=== PATIENT | male | born 1995 | race African-American/Black ===

== ENCOUNTER 2022-01-10 12:04 | Inpatient (IN) | payer OTHER ==
[~2022-01-10] VITALS: Ht 188 cm; Wt 85.3 kg
[2022-01-10 16:30] VITALS: BP 126/67
[2022-01-10 18:20] VITALS: BP 126/62
[2022-01-10] MEDS ORDERED: ACETAMINOPHEN 325 MG TABLET PO PRN (18:45)
[2022-01-10] MEDS ORDERED: ONDANSETRON HCL 4 MG TABLET PO PRN (19:00)
[2022-01-10] MEDS: ACETAMINOPHEN 325 MG TABLET PO SCH ×2 (19:53→23:30)
[2022-01-10] MEDS: CELECOXIB 100 MG CAPSULE PO SCH (20:02)
[2022-01-10] MEDS: PREGABALIN 50 MG CAPSULE PO SCH (20:03)
[2022-01-10] MEDS: METHOCARBAMOL 500 MG TABLET PO SCH (20:04)
[2022-01-10] MEDS: POLYETHYLENE GLYCOL 3350 17 GM PACKET PO SCH (20:05)
[2022-01-10] MEDS: SENNA 187 MG TABLET PO SCH (20:05)
[2022-01-10] MEDS: DOCUSATE SODIUM 100 MG CAPSULE PO SCH (20:05)
[2022-01-10] MEDS ORDERED: DULoxetine HCL 30 MG CAPSULE PO SCH (21:00)
[2022-01-10 21:01] LABS: BASOPHILS % (AUTO) 0.8 % (0.0-2.0); EOSINOPHILS % (AUTO) 3.4 % (1.0-6.0); HEMATOCRIT 34.1 % (41-53); HEMOGLOBIN 11.2 g/dL (13.5-17.5); LYMPHOCYTES # (AUTO) 1.5 K/uL (1.0-4.8); LYMPHOCYTES % (AUTO) 34.2 % (22.0-44.0); MEAN CORPUSCULAR HEMOGLOBIN 29.4 pg (26.0-34.0); MEAN CORPUSCULAR HGB CONC 32.8 G/dL (31.0-37.0); MEAN CORPUSCULAR VOLUME 90 fL (80-100); MONOCYTES # (AUTO) 0.5 K/uL (0.1-1.0); MONOCYTES % (AUTO) 10.5 % (2.0-9.0); NEUTROPHILS # (AUTO) 2.3 K/uL (1.8-7.7); NEUTROPHILS % (AUTO) 51.1 % (40.0-70.0); PLATELET COUNT (AUTO) 408 K/uL (150-450); RED BLOOD CELL COUNT(AUTO) 3.81 MIL/uL (4.50-5.90); RED CELL DISTRIBUTION WIDTH 14.4 % (11.5-14.5)
[2022-01-10 21:17] LABS: ALANINE AMINOTRANSFERASE 56 U/L (12-78); ALBUMIN 2.9 g/dL (3.4-5.0); ALKALINE PHOSPHATASE 157 U/L (46-116); ANION GAP 9 mmol/L (8-16); ASPARTATE AMINOTRANSFERASE 19 U/L (15-37); BILIRUBIN,TOTAL 0.4 mg/dL (0.1-1.0); CALCIUM, TOTAL 9.1 mg/dL (8.8-10.5); CARBON DIOXIDE 28 mmol/L (22-29); CHLORIDE 102 mmol/L (98-107); CREATININE 0.74 mg/dL (0.60-1.30); GLOMERULAR FILTR. RATE CALC > 60 mL/min (>60); GLUCOSE,RANDOM 136 mg/dL (70-110); POTASSIUM 4.2 mmol/L (3.5-5.1); SODIUM SERUM 139 mmol/L (136-145); TOTAL PROTEIN, SERUM 7.1 g/dL (6.4-8.2); UREA NITROGEN, BLOOD 14 mg/dL (7-18)
[2022-01-10] MEDS: OxyCODONE HCL 5 MG IR TABLET PO PRN (21:17)
[2022-01-10] MEDS: MELATONIN 3 MG TABLET PO SCH (23:30)
[2022-01-11 00:12] VITALS: BP 161/83
[2022-01-11 01:07] VITALS: BP 161/83
[2022-01-11] MEDS: OxyCODONE HCL 5 MG IR TABLET PO PRN ×4 (01:45→18:20)
[2022-01-11] MEDS: ACETAMINOPHEN 325 MG TABLET PO SCH ×5 (03:40→19:53)
[2022-01-11 04:50] VITALS: BP 175/93
[2022-01-11] MEDS: PREGABALIN 50 MG CAPSULE PO SCH ×3 (08:29→20:12)
[2022-01-11] MEDS: ENOXAPARIN SODIUM 40 MG/0.4 ML PF SYRINGE SQ SCH (08:29)
[2022-01-11] MEDS: METHOCARBAMOL 500 MG TABLET PO SCH ×3 (08:29→20:12)
[2022-01-11] MEDS: AmLODIPine BESYLATE 10 MG TABLET PO SCH (08:29)
[2022-01-11] MEDS: CELECOXIB 100 MG CAPSULE PO SCH ×2 (08:30→20:12)
[2022-01-11] MEDS: POLYETHYLENE GLYCOL 3350 17 GM PACKET PO SCH ×2 (08:30→20:13)
[2022-01-11] MEDS: DOCUSATE SODIUM 100 MG CAPSULE PO SCH ×2 (08:30→20:13)
[2022-01-11 09:01] VITALS: BP 151/94
[2022-01-11 16:05] VITALS: BP 158/85
[2022-01-11] MEDS: SENNA 187 MG TABLET PO SCH (20:13)
[2022-01-11] MEDS: DULoxetine HCL 60 MG CAPSULE PO SCH (20:28)
[2022-01-11] MEDS: MELATONIN 3 MG TABLET PO SCH (21:37)
[2022-01-12] VITALS: BP 145/83
[2022-01-12] MEDS: ACETAMINOPHEN 325 MG TABLET PO SCH ×7 (00:04→19:55)
[2022-01-12] MEDS: OxyCODONE HCL 5 MG IR TABLET PO PRN ×7 (00:51→21:45)
[2022-01-12] MEDS: PREGABALIN 50 MG CAPSULE PO SCH ×3 (07:59→21:22)
[2022-01-12] MEDS: ENOXAPARIN SODIUM 40 MG/0.4 ML PF SYRINGE SQ SCH (07:59)
[2022-01-12] MEDS: METHOCARBAMOL 500 MG TABLET PO SCH ×3 (07:59→20:25)
[2022-01-12] MEDS: CELECOXIB 100 MG CAPSULE PO SCH ×2 (08:00→20:24)
[2022-01-12] MEDS: AmLODIPine BESYLATE 10 MG TABLET PO SCH (08:00)
[2022-01-12] MEDS: POLYETHYLENE GLYCOL 3350 17 GM PACKET PO SCH ×2 (08:00→20:25)
[2022-01-12] MEDS: DOCUSATE SODIUM 100 MG CAPSULE PO SCH ×2 (08:00→20:24)
[2022-01-12 08:10] VITALS: BP 135/82
[2022-01-12 15:35] VITALS: BP 128/85
[2022-01-12] MEDS: SENNA 187 MG TABLET PO SCH (20:25)
[2022-01-12] MEDS: DULoxetine HCL 60 MG CAPSULE PO SCH (20:25)
[2022-01-12] MEDS ORDERED: AMITRIPTYLINE HCL 25 MG TABLET PO SCH (21:00)
[2022-01-12] MEDS: MELATONIN 3 MG TABLET PO SCH (21:22)
[2022-01-13] MEDS: ACETAMINOPHEN 325 MG TABLET PO SCH ×7 (03:45→23:54)
[2022-01-13] MEDS: OxyCODONE HCL 5 MG IR TABLET PO PRN ×7 (03:45→23:54)
[2022-01-13 06:15] VITALS: BP 143/90
[2022-01-13 06:57] VITALS: BP 156/102
[2022-01-13] MEDS: METHOCARBAMOL 500 MG TABLET PO SCH ×3 (08:46→21:54)
[2022-01-13] MEDS: POLYETHYLENE GLYCOL 3350 17 GM PACKET PO SCH ×2 (08:47→21:55)
[2022-01-13] MEDS: CELECOXIB 100 MG CAPSULE PO SCH ×2 (08:47→21:53)
[2022-01-13] MEDS: DOCUSATE SODIUM 100 MG CAPSULE PO SCH ×2 (08:47→21:52)
[2022-01-13] MEDS: PREGABALIN 50 MG CAPSULE PO SCH ×3 (08:47→21:52)
[2022-01-13] MEDS: AmLODIPine BESYLATE 10 MG TABLET PO SCH (08:48)
[2022-01-13] MEDS: ENOXAPARIN SODIUM 40 MG/0.4 ML PF SYRINGE SQ SCH (08:48)
[2022-01-13] MEDS ORDERED: NALOXONE HCL 0.4 MG/ML VIAL IM PRN (10:00)
[2022-01-13 10:22] VITALS: BP 157/94
[2022-01-13] MEDS: ETHYL ALCOHOL 62% ANTISEPTIC NASAL SANITIZER 0.6 ML AMPUL NASAL SCH ×2 (10:22→21:49)
[2022-01-13 16:42] VITALS: BP 140/86
[2022-01-13] MEDS: SENNA 187 MG TABLET PO SCH (21:00)
[2022-01-13] MEDS: OxyCODONE HCL 20 MG ER TABLET PO SCH (21:50)
[2022-01-13] MEDS: MELATONIN 3 MG TABLET PO SCH (21:52)
[2022-01-13] MEDS: DULoxetine HCL 60 MG CAPSULE PO SCH (21:52)
[2022-01-13] MEDS: AMITRIPTYLINE HCL 25 MG TABLET PO SCH (21:56)
[2022-01-13 23:54] VITALS: BP 145/90
[2022-01-14] MEDS: ACETAMINOPHEN 325 MG TABLET PO SCH ×5 (04:00→21:13)
[2022-01-14 07:15] VITALS: BP 156/100
[2022-01-14] MEDS: OxyCODONE HCL 5 MG IR TABLET PO PRN ×4 (07:15→19:07)
[2022-01-14] MEDS: ETHYL ALCOHOL 62% ANTISEPTIC NASAL SANITIZER 0.6 ML AMPUL NASAL SCH ×2 (08:14→21:07)
[2022-01-14] MEDS: DOCUSATE SODIUM 100 MG CAPSULE PO SCH ×2 (08:15→21:08)
[2022-01-14] MEDS: OxyCODONE HCL 20 MG ER TABLET PO SCH ×2 (08:15→21:09)
[2022-01-14] MEDS: CELECOXIB 100 MG CAPSULE PO SCH ×2 (08:15→21:10)
[2022-01-14] MEDS: AmLODIPine BESYLATE 10 MG TABLET PO SCH (08:15)
[2022-01-14] MEDS: PREGABALIN 50 MG CAPSULE PO SCH ×3 (08:15→21:07)
[2022-01-14] MEDS: METHOCARBAMOL 500 MG TABLET PO SCH ×3 (08:16→21:08)
[2022-01-14] MEDS: ENOXAPARIN SODIUM 40 MG/0.4 ML PF SYRINGE SQ SCH (08:16)
[2022-01-14] MEDS: POLYETHYLENE GLYCOL 3350 17 GM PACKET PO SCH ×2 (08:17→21:10)
[2022-01-14 16:03] VITALS: BP 136/90
[2022-01-14] MEDS: SENNA 187 MG TABLET PO SCH (21:00)
[2022-01-14] MEDS: AMITRIPTYLINE HCL 25 MG TABLET PO SCH (21:09)
[2022-01-14] MEDS: DULoxetine HCL 60 MG CAPSULE PO SCH (21:09)
[2022-01-14] MEDS: MELATONIN 3 MG TABLET PO SCH (21:09)
[2022-01-14 23:00] VITALS: BP 149/91
[2022-01-15] MEDS: ACETAMINOPHEN 325 MG TABLET PO SCH ×6 (04:00→19:57)
[2022-01-15] MEDS: OxyCODONE HCL 5 MG IR TABLET PO PRN ×3 (07:41→16:13)
[2022-01-15 07:42] VITALS: BP 153/93
[2022-01-15 07:55] LABS: BASOPHILS % (AUTO) 0.6 % (0.0-2.0); EOSINOPHILS % (AUTO) 5.2 % (1.0-6.0); HEMATOCRIT 37.4 % (41-53); HEMOGLOBIN 12.1 g/dL (13.5-17.5); LYMPHOCYTES # (AUTO) 1.9 K/uL (1.0-4.8); LYMPHOCYTES % (AUTO) 46.1 % (22.0-44.0); MEAN CORPUSCULAR HEMOGLOBIN 29.3 pg (26.0-34.0); MEAN CORPUSCULAR HGB CONC 32.2 G/dL (31.0-37.0); MEAN CORPUSCULAR VOLUME 91 fL (80-100); MONOCYTES # (AUTO) 0.4 K/uL (0.1-1.0); MONOCYTES % (AUTO) 8.4 % (2.0-9.0); NEUTROPHILS # (AUTO) 1.7 K/uL (1.8-7.7); NEUTROPHILS % (AUTO) 39.7 % (40.0-70.0); PLATELET COUNT (AUTO) 329 K/uL (150-450); RED BLOOD CELL COUNT(AUTO) 4.11 MIL/uL (4.50-5.90); RED CELL DISTRIBUTION WIDTH 14.9 % (11.5-14.5)
[2022-01-15] MEDS: OxyCODONE HCL 20 MG ER TABLET PO SCH ×2 (08:37→21:23)
[2022-01-15] MEDS: POLYETHYLENE GLYCOL 3350 17 GM PACKET PO SCH ×2 (08:37→21:23)
[2022-01-15] MEDS: ETHYL ALCOHOL 62% ANTISEPTIC NASAL SANITIZER 0.6 ML AMPUL NASAL SCH ×2 (08:38→21:24)
[2022-01-15] MEDS: PREGABALIN 50 MG CAPSULE PO SCH ×3 (08:38→21:23)
[2022-01-15] MEDS: METHOCARBAMOL 500 MG TABLET PO SCH ×3 (08:38→21:22)
[2022-01-15] MEDS: ENOXAPARIN SODIUM 40 MG/0.4 ML PF SYRINGE SQ SCH (08:38)
[2022-01-15] MEDS: AmLODIPine BESYLATE 10 MG TABLET PO SCH (08:39)
[2022-01-15] MEDS: DOCUSATE SODIUM 100 MG CAPSULE PO SCH ×2 (08:39→21:24)
[2022-01-15] MEDS: CELECOXIB 100 MG CAPSULE PO SCH ×2 (08:39→21:23)
[2022-01-15 16:15] VITALS: BP 141/90
[2022-01-15] MEDS: SENNA 187 MG TABLET PO SCH (21:00)
[2022-01-15] MEDS: MELATONIN 3 MG TABLET PO SCH (21:23)
[2022-01-15] MEDS: DULoxetine HCL 60 MG CAPSULE PO SCH (21:24)
[2022-01-15] MEDS: AMITRIPTYLINE HCL 25 MG TABLET PO SCH (21:24)
[2022-01-16 03:00] VITALS: BP 142/93
[2022-01-16] MEDS: ACETAMINOPHEN 325 MG TABLET PO SCH ×6 (04:00→20:42)
[2022-01-16] MEDS: OxyCODONE HCL 5 MG IR TABLET PO PRN ×3 (06:54→18:07)
[2022-01-16] MEDS: ENOXAPARIN SODIUM 40 MG/0.4 ML PF SYRINGE SQ SCH (08:53)
[2022-01-16] MEDS: METHOCARBAMOL 500 MG TABLET PO SCH ×3 (08:54→20:42)
[2022-01-16] MEDS: PREGABALIN 50 MG CAPSULE PO SCH ×3 (08:54→20:41)
[2022-01-16] MEDS: DOCUSATE SODIUM 100 MG CAPSULE PO SCH ×2 (08:55→20:42)
[2022-01-16] MEDS: AmLODIPine BESYLATE 10 MG TABLET PO SCH (08:55)
[2022-01-16] MEDS: OxyCODONE HCL 20 MG ER TABLET PO SCH ×2 (08:55→20:42)
[2022-01-16] MEDS: CELECOXIB 100 MG CAPSULE PO SCH ×2 (08:56→20:42)
[2022-01-16] MEDS: POLYETHYLENE GLYCOL 3350 17 GM PACKET PO SCH ×3 (08:56→20:51)
[2022-01-16] MEDS: ETHYL ALCOHOL 62% ANTISEPTIC NASAL SANITIZER 0.6 ML AMPUL NASAL SCH ×2 (08:56→20:43)
[2022-01-16 10:43] VITALS: BP 154/85
[2022-01-16] MEDS ORDERED: PREGABALIN 50 MG CAPSULE PO SCH (16:00)
[2022-01-16 16:30] VITALS: BP 154/91
[2022-01-16] MEDS: SENNA 187 MG TABLET PO SCH (20:42)
[2022-01-16] MEDS: AMITRIPTYLINE HCL 25 MG TABLET PO SCH (20:43)
[2022-01-16] MEDS: MELATONIN 3 MG TABLET PO SCH (20:43)
[2022-01-16] MEDS: DULoxetine HCL 60 MG CAPSULE PO SCH (20:43)
[2022-01-17] MEDS: OxyCODONE HCL 5 MG IR TABLET PO PRN ×6 (00:12→23:15)
[2022-01-17 00:13] VITALS: BP 183/91
[2022-01-17] MEDS: ACETAMINOPHEN 325 MG TABLET PO SCH ×8 (04:00→23:25)
[2022-01-17] MEDS: POLYETHYLENE GLYCOL 3350 17 GM PACKET PO SCH ×2 (07:08→21:31)
[2022-01-17] MEDS: ETHYL ALCOHOL 62% ANTISEPTIC NASAL SANITIZER 0.6 ML AMPUL NASAL SCH ×2 (07:08→21:31)
[2022-01-17] MEDS: ENOXAPARIN SODIUM 40 MG/0.4 ML PF SYRINGE SQ SCH (07:08)
[2022-01-17] MEDS: AmLODIPine BESYLATE 10 MG TABLET PO SCH (07:10)
[2022-01-17] MEDS: METHOCARBAMOL 500 MG TABLET PO SCH ×3 (07:10→21:30)
[2022-01-17] MEDS: PREGABALIN 50 MG CAPSULE PO SCH ×3 (07:10→21:30)
[2022-01-17] MEDS: DOCUSATE SODIUM 100 MG CAPSULE PO SCH ×2 (07:11→21:31)
[2022-01-17] MEDS: CELECOXIB 100 MG CAPSULE PO SCH ×2 (07:11→21:30)
[2022-01-17 07:17] VITALS: BP 138/93
[2022-01-17] MEDS: OxyCODONE HCL 20 MG ER TABLET PO SCH ×2 (07:18→21:29)
[2022-01-17 16:30] VITALS: BP 136/90
[2022-01-17] MEDS: SENNA 187 MG TABLET PO SCH (21:29)
[2022-01-17] MEDS: AMITRIPTYLINE HCL 25 MG TABLET PO SCH (21:30)
[2022-01-17] MEDS: MELATONIN 3 MG TABLET PO SCH (21:30)
[2022-01-17] MEDS: DULoxetine HCL 60 MG CAPSULE PO SCH (21:31)
[2022-01-17 23:15] VITALS: BP 142/90
[2022-01-18] MEDS: ACETAMINOPHEN 325 MG TABLET PO SCH ×2 (04:00→08:00)
[2022-01-18] MEDS: OxyCODONE HCL 5 MG IR TABLET PO PRN ×5 (07:35→20:28)
[2022-01-18 08:00] VITALS: BP 156/93
[2022-01-18] MEDS: METHOCARBAMOL 500 MG TABLET PO SCH ×2 (09:00→10:27)
[2022-01-18] MEDS: OxyCODONE HCL 20 MG ER TABLET PO SCH ×2 (09:00→10:27)
[2022-01-18] MEDS: POLYETHYLENE GLYCOL 3350 17 GM PACKET PO SCH ×3 (09:00→20:41)
[2022-01-18] MEDS: PREGABALIN 50 MG CAPSULE PO SCH ×3 (09:28→20:30)
[2022-01-18] MEDS: ETHYL ALCOHOL 62% ANTISEPTIC NASAL SANITIZER 0.6 ML AMPUL NASAL SCH ×2 (09:28→20:30)
[2022-01-18] MEDS: DOCUSATE SODIUM 100 MG CAPSULE PO SCH ×2 (09:28→20:30)
[2022-01-18] MEDS: CELECOXIB 100 MG CAPSULE PO SCH ×2 (09:28→20:29)
[2022-01-18] MEDS: AmLODIPine BESYLATE 10 MG TABLET PO SCH (09:28)
[2022-01-18] MEDS: ENOXAPARIN SODIUM 40 MG/0.4 ML PF SYRINGE SQ SCH (09:29)
[2022-01-18] MEDS ORDERED: ACETAMINOPHEN 325 MG TABLET PO PRN (11:30)
[2022-01-18 16:44] VITALS: BP 156/86
[2022-01-18 20:28] VITALS: BP 153/93
[2022-01-18] MEDS: AMITRIPTYLINE HCL 75 MG TABLET PO SCH (20:29)
[2022-01-18] MEDS: DULoxetine HCL 60 MG CAPSULE PO SCH (20:29)
[2022-01-18] MEDS: CloNIDine HCL 0.1 MG TABLET PO SCH (20:29)
[2022-01-18] MEDS: SENNA 187 MG TABLET PO SCH (20:30)
[2022-01-18] MEDS: MELATONIN 3 MG TABLET PO SCH (20:30)
[2022-01-19 05:39] VITALS: BP 136/87
[2022-01-19] MEDS: OxyCODONE HCL 5 MG IR TABLET PO PRN ×7 (05:39→21:04)
[2022-01-19 08:47] VITALS: BP 154/103
[2022-01-19] MEDS: POLYETHYLENE GLYCOL 3350 17 GM PACKET PO SCH ×3 (09:00→20:35)
[2022-01-19] MEDS: CloNIDine HCL 0.1 MG TABLET PO SCH ×2 (10:29→20:34)
[2022-01-19] MEDS: PREGABALIN 50 MG CAPSULE PO SCH ×4 (10:29→20:50)
[2022-01-19] MEDS: CELECOXIB 100 MG CAPSULE PO SCH ×2 (10:29→20:34)
[2022-01-19] MEDS: ENOXAPARIN SODIUM 40 MG/0.4 ML PF SYRINGE SQ SCH (10:30)
[2022-01-19] MEDS: DOCUSATE SODIUM 100 MG CAPSULE PO SCH ×2 (10:30→20:33)
[2022-01-19] MEDS: ETHYL ALCOHOL 62% ANTISEPTIC NASAL SANITIZER 0.6 ML AMPUL NASAL SCH ×2 (10:30→20:30)
[2022-01-19 16:07] VITALS: BP 145/92
[2022-01-19 20:29] VITALS: BP 140/98
[2022-01-19] MEDS: AMITRIPTYLINE HCL 75 MG TABLET PO SCH (20:33)
[2022-01-19] MEDS: MELATONIN 3 MG TABLET PO SCH (20:34)
[2022-01-19] MEDS: DULoxetine HCL 60 MG CAPSULE PO SCH (20:35)
[2022-01-19] MEDS: SENNA 187 MG TABLET PO SCH (20:36)
[2022-01-20] MEDS: OxyCODONE HCL 5 MG IR TABLET PO PRN ×5 (04:47→18:52)
[2022-01-20 04:58] VITALS: BP 151/93
[2022-01-20] MEDS: ENOXAPARIN SODIUM 40 MG/0.4 ML PF SYRINGE SQ SCH (07:48)
[2022-01-20] MEDS: ETHYL ALCOHOL 62% ANTISEPTIC NASAL SANITIZER 0.6 ML AMPUL NASAL SCH ×2 (07:48→20:07)
[2022-01-20] MEDS: PREGABALIN 50 MG CAPSULE PO SCH ×3 (07:49→20:17)
[2022-01-20] MEDS: CloNIDine HCL 0.1 MG TABLET PO SCH ×2 (07:49→20:06)
[2022-01-20 07:50] VITALS: BP 148/84
[2022-01-20] MEDS: CELECOXIB 100 MG CAPSULE PO SCH ×2 (07:50→20:07)
[2022-01-20] MEDS: POLYETHYLENE GLYCOL 3350 17 GM PACKET PO SCH ×2 (07:50→20:17)
[2022-01-20] MEDS: DOCUSATE SODIUM 100 MG CAPSULE PO SCH ×2 (07:50→20:06)
[2022-01-20 15:32] VITALS: BP 155/82
[2022-01-20 19:52] VITALS: BP 143/89
[2022-01-20] MEDS: SENNA 187 MG TABLET PO SCH (20:06)
[2022-01-20] MEDS: AMITRIPTYLINE HCL 75 MG TABLET PO SCH (20:06)
[2022-01-20] MEDS: MELATONIN 3 MG TABLET PO SCH (20:06)
[2022-01-20] MEDS: DULoxetine HCL 60 MG CAPSULE PO SCH (20:07)
[2022-01-21] MEDS: ETHYL ALCOHOL 62% ANTISEPTIC NASAL SANITIZER 0.6 ML AMPUL NASAL SCH ×2 (07:59→20:27)
[2022-01-21] MEDS: ENOXAPARIN SODIUM 40 MG/0.4 ML PF SYRINGE SQ SCH (07:59)
[2022-01-21] MEDS: CloNIDine HCL 0.1 MG TABLET PO SCH ×2 (08:00→20:28)
[2022-01-21] MEDS: OxyCODONE HCL 5 MG IR TABLET PO PRN ×4 (08:00→20:26)
[2022-01-21] MEDS: PREGABALIN 50 MG CAPSULE PO SCH ×3 (08:00→20:27)
[2022-01-21] MEDS: CELECOXIB 100 MG CAPSULE PO SCH ×2 (08:01→20:28)
[2022-01-21] MEDS: DOCUSATE SODIUM 100 MG CAPSULE PO SCH ×2 (08:01→20:28)
[2022-01-21] MEDS: POLYETHYLENE GLYCOL 3350 17 GM PACKET PO SCH ×2 (08:01→20:28)
[2022-01-21 08:05] VITALS: BP 151/83
[2022-01-21] MEDS ORDERED: OxyCODONE HCL 5 MG IR TABLET PO ONE (10:15)
[2022-01-21 15:57] VITALS: BP 154/81
[2022-01-21] MEDS: AMITRIPTYLINE HCL 75 MG TABLET PO SCH (20:28)
[2022-01-21] MEDS: SENNA 187 MG TABLET PO SCH (20:28)
[2022-01-21] MEDS: DULoxetine HCL 60 MG CAPSULE PO SCH (20:28)
[2022-01-21] MEDS: MELATONIN 3 MG TABLET PO SCH (20:28)
[2022-01-22] MEDS: OxyCODONE HCL 5 MG IR TABLET PO PRN ×4 (06:22→20:46)
[2022-01-22 06:29] VITALS: BP 153/89
[2022-01-22 07:29] VITALS: BP 155/88
[2022-01-22] MEDS: ETHYL ALCOHOL 62% ANTISEPTIC NASAL SANITIZER 0.6 ML AMPUL NASAL SCH ×2 (08:33→20:36)
[2022-01-22] MEDS: PREGABALIN 50 MG CAPSULE PO SCH ×3 (08:33→20:37)
[2022-01-22] MEDS: ENOXAPARIN SODIUM 40 MG/0.4 ML PF SYRINGE SQ SCH (08:33)
[2022-01-22] MEDS: CloNIDine HCL 0.1 MG TABLET PO SCH ×2 (08:34→20:45)
[2022-01-22] MEDS: POLYETHYLENE GLYCOL 3350 17 GM PACKET PO SCH ×2 (08:34→20:48)
[2022-01-22] MEDS: CELECOXIB 100 MG CAPSULE PO SCH ×2 (08:34→20:38)
[2022-01-22] MEDS: DOCUSATE SODIUM 100 MG CAPSULE PO SCH ×2 (08:34→20:38)
[2022-01-22] MEDS ORDERED: AMIT75TA55 PO (10:44)
[2022-01-22] MEDS ORDERED: OXYC5 PO (10:44)
[2022-01-22] MEDS ORDERED: DOCU-385 PO (10:44)
[2022-01-22] MEDS ORDERED: DULO-113 PO (10:44)
[2022-01-22] MEDS ORDERED: CELE100 PO (10:44)
[2022-01-22] MEDS ORDERED: CLON0.1T2 PO (10:44)
[2022-01-22] MEDS ORDERED: PREG50 PO (10:44)
[2022-01-22] MEDS ORDERED: SENN-187 PO (10:44)
[2022-01-22] MEDS ORDERED: ACET325T51 PO (10:44)
[2022-01-22 15:20] VITALS: BP 142/81
[2022-01-22] MEDS: AMITRIPTYLINE HCL 75 MG TABLET PO SCH (20:37)
[2022-01-22] MEDS: MELATONIN 3 MG TABLET PO SCH (20:37)
[2022-01-22] MEDS: DULoxetine HCL 60 MG CAPSULE PO SCH (20:38)
[2022-01-22 20:46] VITALS: BP 150/82
[2022-01-22] MEDS: SENNA 187 MG TABLET PO SCH (20:48)
[2022-01-23 06:24] VITALS: BP 140/86
[2022-01-23] MEDS: OxyCODONE HCL 5 MG IR TABLET PO PRN ×4 (06:24→15:58)
[2022-01-23] MEDS: POLYETHYLENE GLYCOL 3350 17 GM PACKET PO SCH ×2 (09:00→20:23)
[2022-01-23] MEDS: CloNIDine HCL 0.1 MG TABLET PO SCH ×2 (09:01→20:22)
[2022-01-23] MEDS: ENOXAPARIN SODIUM 40 MG/0.4 ML PF SYRINGE SQ SCH (09:01)
[2022-01-23] MEDS: ETHYL ALCOHOL 62% ANTISEPTIC NASAL SANITIZER 0.6 ML AMPUL NASAL SCH ×2 (09:01→20:21)
[2022-01-23] MEDS: DOCUSATE SODIUM 100 MG CAPSULE PO SCH ×2 (09:02→20:23)
[2022-01-23] MEDS: CELECOXIB 100 MG CAPSULE PO SCH ×2 (09:02→20:22)
[2022-01-23] MEDS: PREGABALIN 50 MG CAPSULE PO SCH ×3 (09:02→20:22)
[2022-01-23 09:41] VITALS: BP 158/80
[2022-01-23] MEDS ORDERED: ASPI-1515 PO (12:49)
[2022-01-23] MEDS ORDERED: FAMO20 PO (12:52)
[2022-01-23 16:00] VITALS: BP 141/74
[2022-01-23 20:20] VITALS: BP 150/78
[2022-01-23] MEDS: DULoxetine HCL 60 MG CAPSULE PO SCH (20:22)
[2022-01-23] MEDS: MELATONIN 3 MG TABLET PO SCH (20:22)
[2022-01-23] MEDS: AMITRIPTYLINE HCL 75 MG TABLET PO SCH (20:22)
[2022-01-23] MEDS: SENNA 187 MG TABLET PO SCH (20:23)
[2022-01-24] MEDS: OxyCODONE HCL 5 MG IR TABLET PO PRN ×4 (07:55→18:28)
[2022-01-24 08:55] VITALS: BP 147/87
[2022-01-24] MEDS: POLYETHYLENE GLYCOL 3350 17 GM PACKET PO SCH (09:00)
[2022-01-24] MEDS: DOCUSATE SODIUM 100 MG CAPSULE PO SCH ×2 (09:00→21:07)
[2022-01-24] MEDS: ETHYL ALCOHOL 62% ANTISEPTIC NASAL SANITIZER 0.6 ML AMPUL NASAL SCH ×2 (09:34→21:07)
[2022-01-24] MEDS: ENOXAPARIN SODIUM 40 MG/0.4 ML PF SYRINGE SQ SCH (09:34)
[2022-01-24] MEDS: CloNIDine HCL 0.1 MG TABLET PO SCH ×2 (09:35→21:08)
[2022-01-24] MEDS: CELECOXIB 100 MG CAPSULE PO SCH ×2 (09:36→21:07)
[2022-01-24] MEDS: PREGABALIN 50 MG CAPSULE PO SCH ×3 (09:37→21:08)
[2022-01-24 15:41] VITALS: BP 144/82
[2022-01-24 20:30] VITALS: BP 155/84
[2022-01-24] MEDS: AMITRIPTYLINE HCL 75 MG TABLET PO SCH (21:07)
[2022-01-24] MEDS: DULoxetine HCL 60 MG CAPSULE PO SCH (21:08)
[2022-01-24] MEDS: MELATONIN 3 MG TABLET PO SCH (21:08)
[2022-01-24] MEDS: SENNA 187 MG TABLET PO SCH (21:08)
[2022-01-25] MEDS: PREGABALIN 50 MG CAPSULE PO SCH ×3 (08:28→21:09)
[2022-01-25] MEDS: DOCUSATE SODIUM 100 MG CAPSULE PO SCH ×2 (08:28→21:09)
[2022-01-25] MEDS: ETHYL ALCOHOL 62% ANTISEPTIC NASAL SANITIZER 0.6 ML AMPUL NASAL SCH ×2 (08:28→21:09)
[2022-01-25] MEDS: CloNIDine HCL 0.1 MG TABLET PO SCH ×2 (08:28→21:10)
[2022-01-25] MEDS: ENOXAPARIN SODIUM 40 MG/0.4 ML PF SYRINGE SQ SCH (08:28)
[2022-01-25] MEDS: OxyCODONE HCL 5 MG IR TABLET PO PRN ×4 (08:29→21:08)
[2022-01-25] MEDS: CELECOXIB 100 MG CAPSULE PO SCH ×2 (08:29→21:10)
[2022-01-25 08:35] VITALS: BP 142/91
[2022-01-25 11:35] VITALS: BP 130/72
[2022-01-25 12:10] VITALS: BP 139/80
[2022-01-25 19:28] VITALS: BP 145/78
[2022-01-25 21:08] VITALS: BP 154/87
[2022-01-25] MEDS: DULoxetine HCL 60 MG CAPSULE PO SCH (21:09)
[2022-01-25] MEDS: MELATONIN 3 MG TABLET PO SCH (21:09)
[2022-01-25] MEDS: AMITRIPTYLINE HCL 75 MG TABLET PO SCH (21:10)
[2022-01-25] MEDS: SENNA 187 MG TABLET PO SCH (21:10)
[2022-01-26] MEDS: ENOXAPARIN SODIUM 40 MG/0.4 ML PF SYRINGE SQ SCH (07:42)
[2022-01-26] MEDS: ETHYL ALCOHOL 62% ANTISEPTIC NASAL SANITIZER 0.6 ML AMPUL NASAL SCH ×2 (07:42→20:58)
[2022-01-26] MEDS: DOCUSATE SODIUM 100 MG CAPSULE PO SCH ×2 (07:43→20:57)
[2022-01-26] MEDS: CloNIDine HCL 0.1 MG TABLET PO SCH ×2 (07:43→20:58)
[2022-01-26] MEDS: OxyCODONE HCL 5 MG IR TABLET PO PRN ×4 (07:43→18:39)
[2022-01-26] MEDS: PREGABALIN 50 MG CAPSULE PO SCH ×3 (07:43→20:58)
[2022-01-26] MEDS: CELECOXIB 100 MG CAPSULE PO SCH ×2 (07:43→20:58)
[2022-01-26 08:00] VITALS: BP 149/88
[2022-01-26 11:26] LABS: BASOPHILS % (AUTO) 0.6 % (0.0-2.0); EOSINOPHILS % (AUTO) 4.4 % (1.0-6.0); HEMATOCRIT 39.9 % (41-53); HEMOGLOBIN 13.2 g/dL (13.5-17.5); LYMPHOCYTES # (AUTO) 1.6 K/uL (1.0-4.8); LYMPHOCYTES % (AUTO) 49.1 % (22.0-44.0); MEAN CORPUSCULAR HEMOGLOBIN 29.2 pg (26.0-34.0); MEAN CORPUSCULAR HGB CONC 33.2 G/dL (31.0-37.0); MEAN CORPUSCULAR VOLUME 88 fL (80-100); MONOCYTES # (AUTO) 0.3 K/uL (0.1-1.0); MONOCYTES % (AUTO) 9.1 % (2.0-9.0); NEUTROPHILS # (AUTO) 1.2 K/uL (1.8-7.7); NEUTROPHILS % (AUTO) 36.8 % (40.0-70.0); PLATELET COUNT (AUTO) 239 K/uL (150-450); RED BLOOD CELL COUNT(AUTO) 4.53 MIL/uL (4.50-5.90); RED CELL DISTRIBUTION WIDTH 14.1 % (11.5-14.5)
[2022-01-26 11:36] LABS: ANION GAP 5 mmol/L (8-16); CARBON DIOXIDE 30 mmol/L (22-29); CHLORIDE 101 mmol/L (98-107); CREATININE 0.77 mg/dL (0.60-1.30); GLOMERULAR FILTR. RATE CALC > 60 mL/min (>60); GLUCOSE,RANDOM 108 mg/dL (70-110); POTASSIUM 3.8 mmol/L (3.5-5.1); SODIUM SERUM 136 mmol/L (136-145); UREA NITROGEN, BLOOD 15 mg/dL (7-18)
[2022-01-26 15:11] VITALS: BP 141/83
[2022-01-26] MEDS: DULoxetine HCL 60 MG CAPSULE PO SCH (20:57)
[2022-01-26] MEDS: SENNA 187 MG TABLET PO SCH (20:57)
[2022-01-26] MEDS: AMITRIPTYLINE HCL 75 MG TABLET PO SCH (20:57)
[2022-01-26] MEDS: MELATONIN 3 MG TABLET PO SCH (20:58)
[2022-01-27] MEDS: OxyCODONE HCL 5 MG IR TABLET PO PRN ×3 (04:23→14:03)
[2022-01-27] MEDS: CloNIDine HCL 0.1 MG TABLET PO SCH (08:37)
[2022-01-27] MEDS: ETHYL ALCOHOL 62% ANTISEPTIC NASAL SANITIZER 0.6 ML AMPUL NASAL SCH (08:37)
[2022-01-27] MEDS: PREGABALIN 50 MG CAPSULE PO SCH (08:37)
[2022-01-27] MEDS: ENOXAPARIN SODIUM 40 MG/0.4 ML PF SYRINGE SQ SCH (08:37)
[2022-01-27] MEDS: CELECOXIB 100 MG CAPSULE PO SCH (08:38)
[2022-01-27] MEDS: DOCUSATE SODIUM 100 MG CAPSULE PO SCH (08:38)
[2022-01-27 08:40] VITALS: BP 135/76
[2022-01-27 16:05] VITALS: BP 131/76
== END 2022-01-27 16:00 | disposition home or self-care (01) | DRG 964 ==
LOC: 2WR 16:00
PROVIDERS: ADMIT Physical Medicine & Rehabilitation; ATTEND Physical Medicine & Rehabilitation
DX: S72.8X1A Other fracture of right femur, initial encounter for closed fracture (principal); S32.492A Other specified fracture of left acetabulum, initial encounter for closed fracture; S82.291A Other fracture of shaft of right tibia, initial encounter for closed fracture; S82.091A Other fracture of right patella, initial encounter for closed fracture; E46 Unspecified protein-calorie malnutrition; F33.0 Major depressive disorder, recurrent, mild; N17.9 Acute kidney failure, unspecified; M62.82 Rhabdomyolysis; D75.A Glucose-6-phosphate dehydrogenase (G6PD) deficiency without anemia; F32.A Depression, unspecified; G54.0 Brachial plexus disorders; I10 Essential (primary) hypertension; Z53.20 Procedure and treatment not carried out because of patient's decision for unspecified reasons; S82.491A Other fracture of shaft of right fibula, initial encounter for closed fracture; S62.644A Nondisplaced fracture of proximal phalanx of right ring finger, initial encounter for closed fracture; S62.646A Nondisplaced fracture of proximal phalanx of right little finger, initial encounter for closed fracture; S14.3XXA Injury of brachial plexus, initial encounter; Z91.51 Personal history of suicidal behavior; Z68.24 Body mass index [BMI] 24.0-24.9, adult; Z79.899 Other long term (current) drug therapy
CPT/HCPCS: 80048; 80053; 85025; 87081; 92507; 92523; 97032; 97110; 97112; 97116; 97163; 97166; 97530; 97535; 99366; J1650; Q0162